=== PATIENT | female | born 1980 | race African-American/Black ===

== ENCOUNTER 2021-03-20 13:29 | Emergency (ER) | payer BC, MEDICAID ==
[~2021-03-20] VITALS: Ht 165.1 cm; Wt 58.2 kg
[2021-03-20] MEDS ORDERED: ONDANSETRON 4MG ODT PO ONE (16:45)
[2021-03-20] MEDS ORDERED: HYDROCODONE/ACETAMINOPHEN 5/325MG TABLET PO ONE (16:45)
[2021-03-20] MEDS ORDERED: IBUP-2029 MT (19:29)
[2021-03-20 20:00] VITALS: BP 128/71
== END 2021-03-20 20:15 | disposition home or self-care (01) ==
LOC: ER 13:29
DX: S00.83XA Contusion of other part of head, initial encounter (principal); S16.1XXA Strain of muscle, fascia and tendon at neck level, initial encounter; S80.12XA Contusion of left lower leg, initial encounter; S80.11XA Contusion of right lower leg, initial encounter; S40.022A Contusion of left upper arm, initial encounter; S40.021A Contusion of right upper arm, initial encounter; F41.9 Anxiety disorder, unspecified; Z90.49 Acquired absence of other specified parts of digestive tract; Z85.9 Personal history of malignant neoplasm, unspecified; Y08.89XA Assault by other specified means, initial encounter; Y93.89 Activity, other specified; Y92.89 Other specified places as the place of occurrence of the external cause
CPT/HCPCS: 70450; 70486; 72125; 73060; 73090; 99285; Q0162